=== PATIENT | female | born 1985 | race Caucasian/White ===

== ENCOUNTER 2017-10-10 10:11 | Day surgery (SDC) | payer BC ==
[~2017-10-10 10:11] MED LIST: Lactated Ringers 1,000 ML IV SCH
[2017-10-10] MEDS ORDERED: Propofol 200 MG/20 ML SDV ONE (10:14)
[2017-10-10] MEDS ORDERED: Midazolam 1 MG/ML 2 ML SDV ONE (10:15)
--- NOTE | 2017-10-10 10:57 | PCM.PREANE ---
Preanesthetic Assessment - Anesthesia/Transfusion/Family Hx Anesthesia History: Prior Anesthesia Reaction Transfusion History: No Prior Transfusion(s) - Physical Assessment O2 Sat by Pulse Oximetry: 98 Respiratory Rate: 16 Vital Signs: Last Vital Signs Temp 36.4 C 10/10/17 10:28 Pulse 76 10/10/17 10:28 Resp 16 10/10/17 10:28 BP 124/75 10/10/17 10:28 Pulse Ox 98 10/10/17 10:28 Height: 1.78 m Weight: 100.698 kg - Allergies Allergies/Adverse Reactions: Allergies Allergy/AdvReac Type Severity Reaction Status Date / Time chocolate flavor Allergy Cannot Verified 10/06/17 15:59 Remember gluten Allergy Abdominal Verified 10/06/17 15:59 Pain peanuts Allergy Cannot Uncoded 10/06/17 15:59 Remember PreAnesthesia Questionnaire Other HEENT History: wears glasses/contacts Cardiovascular History: Reports: None Neurological History: Reports: Concussion, Other (See Below) Other Neuro History: hx of motion sickness Endocrine/Metabolic History: Reports: Hypothyroidism, Obesity/BMI 30+ - Past Surgical History HEENT Surgical History: Reports: Tonsillectomy GI Surgical History: Reports: Appendectomy Female Surgical History: Reports: Breast Biopsy Endocrine Surgical History: Reports: Thyroidectomy Musculoskeletal Surgical History: Reports: Shoulder Surgery Other Musculoskeletal Surgeries/Procedures:: right shoulder- repair of labrim tear - SUBSTANCE USE Smoking Status *Q: Never Smoker Recreational Drug Use History: No - HOME MEDS Home Medications: Home Meds Levothyroxine Sodium [Synthroid] 175 mcg PO QAM 10/06/17 [History] Omeprazole 40 mg PO QAM 10/06/17 [History] - CURRENT (IN HOUSE) MEDS Current Meds: Current Medications Lactated Ringer's (Ringers, Lactated) 1,000 mls @ 125 mls/hr IV ASDIRECTED ROSY Last Admin: 10/10/17 10:33 Dose: 125 mls/hr Discontinued Medications Lidocaine HCl (Xylocaine-Mpf 1%) Confirm Administered Dose 5 ml .ROUTE .STK-MED ONE Stop: 10/10/17 10:16 Midazolam HCl (Versed 1 Mg/Ml) Confirm Administered Dose 2 mg .ROUTE .STK-MED ONE Stop: 10/10/17 10:16 Propofol (Diprivan 20 Ml) Confirm Administered Dose 200 mg .ROUTE .STIcinetic-MED ONE Stop: 10/10/17 10:15
--- NOTE | 2017-10-10 10:59 | PCM.PREANE ---
Preanesthetic Assessment - Anesthesia/Transfusion/Family Hx Anesthesia History: Prior Anesthesia Reaction Type of Anesthesia Reaction: Excessive Nausea/Vomiting Family History of Anesthesia Reaction: No Transfusion History: No Prior Transfusion(s) - Review of Systems General: No Symptoms Pulmonary: No Symptoms Cardiovascular: No Symptoms Gastrointestinal: No Symptoms Neurological: No Symptoms Other: Reports: None - Physical Assessment NPO Status Date: 10/09/17 O2 Sat by Pulse Oximetry: 98 Respiratory Rate: 16 Vital Signs: Last Vital Signs Temp 36.4 C 10/10/17 10:28 Pulse 76 10/10/17 10:28 Resp 16 10/10/17 10:57 BP 124/75 10/10/17 10:28 Pulse Ox 98 10/10/17 10:57 Height: 1.78 m Weight: 100.698 kg ASA Class: 2 Mental Status: Alert & Oriented x3 Airway Class: Mallampati = 1 Dentition: Reports: Normal Dentition ROM/Head Extension: Full Lungs: Clear to Auscultation, Normal Respiratory Effort Cardiovascular: Regular Rate, Regular Rhythm - Lab Values: Laboratory Last Values Urine HCG, Qual NEGATIVE (NEGATIVE) 10/10/17 10:23 - Allergies Allergies/Adverse Reactions: Allergies Allergy/AdvReac Type Severity Reaction Status Date / Time chocolate flavor Allergy Cannot Verified 10/06/17 15:59 Remember gluten Allergy Abdominal Verified 10/06/17 15:59 Pain peanuts Allergy Cannot Uncoded 10/06/17 15:59 Remember - Anesthesia Plan Pre-Op Medication Ordered: None - Acknowledgements Anesthesia Type Planned: MAC Pt an Appropriate Candidate for the Planned Anesthesia: Yes Alternatives and Risks of Anesthesia Discussed w Pt/Guardian: Yes Pt/Guardian Understands and Agrees with Anesthesia Plan: Yes PreAnesthesia Questionnaire Other HEENT History: wears glasses/contacts Cardiovascular History: Reports: None Neurological History: Reports: Concussion, Other (See Below) Other Neuro History: hx of motion sickness Endocrine/Metabolic History: Reports: Hypothyroidism, Obesity/BMI 30+ - Past Surgical History HEENT Surgical History: Reports: Tonsillectomy GI Surgical History: Reports: Appendectomy Female Surgical History: Reports: Breast Biopsy Endocrine Surgical History: Reports: Thyroidectomy Musculoskeletal Surgical History: Reports: Shoulder Surgery Other Musculoskeletal Surgeries/Procedures:: right shoulder- repair of labrim tear - SUBSTANCE USE Smoking Status *Q: Never Smoker Recreational Drug Use History: No - HOME MEDS Home Medications: Home Meds Levothyroxine Sodium [Synthroid] 175 mcg PO QAM 10/06/17 [History] Omeprazole 40 mg PO QAM 10/06/17 [History] - CURRENT (IN HOUSE) MEDS Current Meds: Current Medications Lactated Ringer's (Ringers, Lactated) 1,000 mls @ 125 mls/hr IV ASDIRECTED COUNTS INCLUDE 234 BEDS AT THE [facility] Last Admin: 10/10/17 10:33 Dose: 125 mls/hr Discontinued Medications Lidocaine HCl (Xylocaine-Mpf 1%) Confirm Administered Dose 5 ml .ROUTE .STK-MED ONE Stop: 10/10/17 10:16 Midazolam HCl (Versed 1 Mg/Ml) Confirm Administered Dose 2 mg .ROUTE .STK-MED ONE Stop: 10/10/17 10:16 Propofol (Diprivan 20 Ml) Confirm Administered Dose 200 mg .ROUTE .STK-MED ONE Stop: 10/10/17 10:15
--- NOTE | 2017-10-10 11:41 | PCM.OPNOTE ---
- General Post-Op/Procedure Note Date of Surgery/Procedure: 10/10/17 Operative Procedure(s): gastroscopy w bx Findings: see dict [id number] Pre Op Diagnosis: black tarry stool and epigastric pain Post-Op Diagnosis: Same Anesthesia Technique: Moderate Sedation Primary Surgeon: Maurilio Hammonds Pathology: egd bx Complications: None Condition: Good
--- NOTE | 2017-10-10 11:45 | PCM48HPAN ---
Post Anesthesia Note - EVALUATION WITHIN 48HRS OF ANESTHETIC Vital Signs in Normal Range: Yes Patient Participated in Evaluation: Yes Respiratory Function Stable: Yes Airway Patent: Yes Cardiovascular Function Stable: Yes Hydration Status Stable: Yes Pain Control Satisfactory: Yes Nausea and Vomiting Control Satisfactory: Yes Mental Status Recovered: Yes
--- NOTE | 2017-10-10 11:45 | PCM.POSTAN ---
POST ANESTHESIA ASSESSMENT - MENTAL STATUS Mental Status: Alert, Oriented - RESPIRATORY Respiratory Status: Respiratory Rate WNL, Airway Patent, O2 Saturation Stable - CARDIOVASCULAR CV Status: Pulse Rate WNL, Blood Pressure Stable - GASTROINTESTINAL GI Status: No Symptoms - POST OP HYDRATION Hydration Status: Adequate & Stable
--- NOTE | 2017-10-10 12:22 | OR ---
SURGEON: Maurilio Hammonds MD DATE OF PROCEDURE: 10/10/2017 PREOPERATIVE DIAGNOSIS: Black tarry stool. POSTOPERATIVE DIAGNOSIS: Peptic ulcer disease. PROCEDURE PERFORMED: Esophagogastroduodenoscopy with biopsy. FINDINGS: 1. The patient is easily sedated with ART MUSEUM DOCENT and Diprivan. The patient is soundly snoring. 2. Oropharynx and proximal esophagus are free of disease and GE junction at 40 shows moderate salmon color changes with significant GERD. Stomach rugae is normal in appearance and antrum is inflamed. Throughout the stomach has more than 30-40 of petechiae. Appearance is not bleeding, but this petechiae is spotty, possible such as irritated and inflamed stomach. Again, no lali ulcer or blood observed. No bile or food observed. Duodenum was grossly normal in appearance and retroflexed look at the fundus of stomach there was no hiatal hernia. Biopsy done at antrum, body, GE junction at 40, and sucked out the air while scope coming out. PROCEDURE IN DETAIL: The patient was taken to the endoscopy room, and with the ART MUSEUM DOCENT, Diprivan was administered. A well-lubricated EGD scope was gently inserted through the oropharynx, down the esophagus, passing through the gastroesophageal junction, into the stomach. The mucosa was examined upon the passage. Any etiology will be noted. Once in the stomach, we continued to advance to the distal antrum, passed through the pylorus into the second portion of the duodenum. Again, the mucosa was examined for any abnormality and etiology. The scope was then retrieved back to the stomach and then retroflexed to look at the fundus of the stomach. If a biopsy was indicated, we will biopsy the antrum, body, and gastroesophageal junction. The air will be sucked out while the scope is retrieved to reduce the patient's discomfort. The patient tolerated the procedure well. There were no intraoperative complications. Dr. Hammonds was present through the whole procedure. Prior to surgery, a time-out had been called, the patient identified, procedure identified and antibiotic administered. MARGIE / MARIELY /[id number]
== END 2017-10-10 12:21 | disposition home or self-care (01) ==
LOC: MW.SDS 10:11
PROVIDERS: ATTEND Surgery
DX: K29.50 Unspecified chronic gastritis without bleeding (principal); K20.9 Esophagitis, unspecified; R10.11 Right upper quadrant pain; E66.9 Obesity, unspecified; E89.0 Postprocedural hypothyroidism; Z98.890 Other specified postprocedural states; Z91.018 Allergy to other foods; Z91.010 Allergy to peanuts; Z91.09 Other allergy status, other than to drugs and biological substances; Z79.899 Other long term (current) drug therapy; Z90.49 Acquired absence of other specified parts of digestive tract; Z68.31 Body mass index [BMI] 31.0-31.9, adult; Z90.89 Acquired absence of other organs
CPT/HCPCS: 43239; 81025; 88305; 88312; J2250; J7120; 00731; J2704

== ENCOUNTER 2017-10-17 08:19 | Day surgery (SDC) | payer BC ==
[~2017-10-17 08:19] MED LIST changes: +ceFAZolin 2 GM in Premix Bag 1 BAG IV ONE
[2017-10-17] MEDS ORDERED: Bupivacaine 25%/EPINEPHrine/PF 30 ML ONE (09:15)
[2017-10-17] MEDS ORDERED: Octyl 2-Cyanoacrylate 1 Tube ONE ×2 (09:24→12:36)
--- NOTE | 2017-10-17 09:30 | PCM.PREANE ---
Preanesthetic Assessment - Anesthesia/Transfusion/Family Hx Anesthesia History: Prior Anesthesia Reaction Other Type of Anesthesia Reaction Comment: requests Scop patch Family History of Anesthesia Reaction: No Transfusion History: No Prior Transfusion(s) - Review of Systems General: No Symptoms Pulmonary: No Symptoms Cardiovascular: No Symptoms Gastrointestinal: No Symptoms Neurological: No Symptoms Other: Reports: None - Physical Assessment NPO Status Date: 10/16/17 O2 Sat by Pulse Oximetry: 98 Respiratory Rate: 16 Vital Signs: Last Vital Signs Temp 36.2 C 10/17/17 08:45 Pulse 81 10/17/17 08:45 Resp 16 10/17/17 08:45 BP 107/76 10/17/17 08:45 Pulse Ox 98 10/17/17 08:45 Height: 1.78 m Weight: 100.698 kg ASA Class: 1 Mental Status: Alert & Oriented x3 Dentition: Reports: Normal Dentition Lungs: Clear to Auscultation, Normal Respiratory Effort Cardiovascular: Regular Rate, Regular Rhythm - Lab Values: Laboratory Last Values Urine HCG, Qual NEGATIVE (NEGATIVE) 10/17/17 08:40 - Allergies Allergies/Adverse Reactions: Allergies Allergy/AdvReac Type Severity Reaction Status Date / Time chocolate flavor Allergy Cannot Verified 10/06/17 15:59 Remember gluten Allergy Abdominal Verified 10/06/17 15:59 Pain peanuts Allergy Cannot Uncoded 10/06/17 15:59 Remember - Anesthesia Plan Pre-Op Medication Ordered: Other (scop) - Acknowledgements Anesthesia Type Planned: General Anesthesia Pt an Appropriate Candidate for the Planned Anesthesia: Yes Alternatives and Risks of Anesthesia Discussed w Pt/Guardian: Yes Pt/Guardian Understands and Agrees with Anesthesia Plan: Yes PreAnesthesia Questionnaire Other HEENT History: wears glasses/contacts Cardiovascular History: Reports: None Gastrointestinal History: Reports: Cholelithiasis Neurological History: Reports: Concussion, Other (See Below) Other Neuro History: hx of motion sickness Endocrine/Metabolic History: Reports: Hypothyroidism, Obesity/BMI 30+ - Past Surgical History HEENT Surgical History: Reports: Tonsillectomy GI Surgical History: Reports: Appendectomy, EGD Female Surgical History: Reports: Breast Biopsy Endocrine Surgical History: Reports: Thyroidectomy Musculoskeletal Surgical History: Reports: Shoulder Surgery Other Musculoskeletal Surgeries/Procedures:: right shoulder- repair of labrim tear - SUBSTANCE USE Smoking Status *Q: Never Smoker Recreational Drug Use History: No - HOME MEDS Home Medications: Home Meds Levothyroxine Sodium [Synthroid] 175 mcg PO QAM 10/06/17 [History] Omeprazole 40 mg PO QAM 10/06/17 [History] - CURRENT (IN HOUSE) MEDS Current Meds: Current Medications Lactated Ringer's (Ringers, Lactated) 1,000 mls @ 125 mls/hr IV ASDIRECTED ROSY Last Admin: 10/17/17 08:51 Dose: 125 mls/hr Discontinued Medications Cefazolin Sodium/Dextrose 2 gm (/ Premix) 50 mls @ 100 mls/hr IV ONETIME ONE Stop: 10/17/17 05:29 Bupivacaine HCl/Epinephrine Bitart (Sensorc Mpf 0.25%-Epi [id number]) Confirm Administered Dose 30 mls @ as directed .ROUTE .STK-MED ONE Stop: 10/17/17 09:16 Octyl Cyanoacrylate (Dermabond Advance) Confirm Administered Dose 1 applic .ROUTE .STK-MED ONE Stop: 10/17/17 09:25
[2017-10-17] MEDS ORDERED: Scopolamine 1.5 MG Transdermal Patch TRDERM PRN (09:33)
[2017-10-17] MEDS ORDERED: Lidocaine 2% 5 ML SDV ONE (10:45)
[2017-10-17] MEDS ORDERED: fentaNYL 100 MCG/2 ML SDV ONE (10:45)
[2017-10-17] MEDS ORDERED: Propofol 200 MG/20 ML SDV ONE (10:45)
[2017-10-17] MEDS ORDERED: Neostigmine Methylsulfate 1 MG/ML 5 ML Syringe ONE (10:46)
[2017-10-17] MEDS ORDERED: Ketorolac 30 MG/ML SDV ONE (10:46)
[2017-10-17] MEDS ORDERED: Glycopyrrolate 0.2 MG/ML SDV ONE (10:46)
[2017-10-17] MEDS ORDERED: Ondansetron 4 MG/2 ML SDV ONE (10:46)
[2017-10-17] MEDS ORDERED: Rocuronium 10 MG/ML 10 ML Syringe ONE (10:46)
[2017-10-17] MEDS ORDERED: Midazolam 1 MG/ML 2 ML SDV ONE (10:46)
[2017-10-17] MEDS ORDERED: Naloxone 0.4 MG/ML Syringe ONE (11:45)
[2017-10-17] MEDS ORDERED: HYDROmorphone 2 MG/ML Syringe IVPUSH ONE (13:03)
[2017-10-17] MEDS ORDERED: fentaNYL 100 MCG/2 ML SDV IVPUSH PRN (13:03)
--- NOTE | 2017-10-17 13:45 | PCM.OPNOTE ---
- General Post-Op/Procedure Note Date of Surgery/Procedure: 10/17/17 Operative Procedure(s): lap lucrecia Findings: gb was yellow and green, cw chronic cholecystitis; wall was not thickened; [id number] Pre Op Diagnosis: biliary dyskinesia Post-Op Diagnosis: chronic cholecystitis Anesthesia Technique: General ET Tube Primary Surgeon: Maurilio Hammonds Pathology: sent Complications: None Condition: Good
[2017-10-17] MEDS ORDERED: Acetaminophen/oxyCODONE 325-10 MG Tab PO ONE (13:46)
--- NOTE | 2017-10-17 19:34 | OR ---
SURGEON: Maurilio Hammonds MD DATE OF PROCEDURE: 10/17/2017 PREOPERATIVE DIAGNOSIS: Biliary dyskinesia. POSTOPERATIVE DIAGNOSIS: Chronic cholecystitis. PROCEDURE PERFORMED: Laparoscopic cholecystectomy. COMPLICATIONS: None. FINDIN. The gallbladder was yellow and green consistent with cholecystitis. 2. Wall is not thickened. PROCEDURE NOTE: The patient was taken to the operating room and placed in the supine position. After the intubation of general endotracheal anesthesia, the patient's abdomen was prepped and draped in the usual sterile fashion. Using Optiview, a 12 mm trocar was placed supraumbilically and then followed with pneumoperitoneum. A 5 mm trocar was placed in the epigastrium and two 5 mm trocars placed in the right upper quadrant. The placement of the last three trocars was done under direct video supervision. Upon gaining entrance to the abdominal cavity, an extensive examination was then performed. The gallbladder was located and identified and retracted to the dome of the liver at the triangle of Calot. The cystic duct was clipped three more times and then using the endoscopic clip, was transected with placement of the endoscopic clip and transection was performed with care, ensuring the posterior prong of the instruments were clearly visualized prior to exercising the procedure. The gallbladder was dissected using electrocautery out of the liver bed and then removed using endoscopic bag through the umbilical site. The gallbladder was removed en bloc and there was no bile spillage and this was then followed with extensive irrigation until the bile was clear from blood and bile. The trocars were then removed under direct video supervision. The 12 mm umbilical site was then closed with deep stitches using 0 Vicryl followed with proximal stitches using 3-0 Vicryl and Dermabond. The other three trocar sites were closed with 3-0 Vicryl followed with approximation of skin with Dermabond. The patient was then awakened and extubated and transferred to the recovery room in hemodynamically stable condition. At the conclusion of the surgery, before closing the abdominal wound, instrument count and sponge count were done and were correct. The patient tolerated the procedure well and there were no intraoperative complications. Dr. Hammonds was present through the whole procedure. Just before surgery, a timeout was called. The patient was identified and procedure identified and procedure started. MARGIE / MARIELY /[id number]
== END 2017-10-17 15:02 | disposition home or self-care (01) ==
LOC: MW.SDS 08:19
PROVIDERS: ATTEND Surgery
DX: K81.1 Chronic cholecystitis (principal); E03.9 Hypothyroidism, unspecified; E66.9 Obesity, unspecified; Z68.31 Body mass index [BMI] 31.0-31.9, adult; Z91.010 Allergy to peanuts; Z91.018 Allergy to other foods; Z91.02 Food additives allergy status; Z79.899 Other long term (current) drug therapy; Z90.49 Acquired absence of other specified parts of digestive tract; Z98.890 Other specified postprocedural states
CPT/HCPCS: 47562; 81025; A9270; J1885; J2250; J2405; J3010; J7120; 00790; 88304; J2704

== ENCOUNTER 2018-10-26 00:03 | Inpatient (IN) | payer SELFPAY ==
[2018-10-26] MEDS ORDERED: Tranexamic Acid 1,000 MG in Sodium Chloride 0.9% 100 ML IV PRN (00:56)
[2018-10-26] MEDS ORDERED: Nalbuphine 10 MG/1 ML Vial IVPUSH PRN (00:56)
[2018-10-26] MEDS ORDERED: Water For Irrigation,Sterile 1,000 ML Container IRR PRN (00:56)
[2018-10-26] MEDS ORDERED: Carboprost Tromethamine 250 MCG/1 ML Amp IM PRN (00:56)
[2018-10-26] MEDS ORDERED: Misoprostol 200 MCG Tab PO PRN (00:56)
[2018-10-26] MEDS ORDERED: Ondansetron 4 MG/2 ML SDV IV PRN (00:56)
[2018-10-26] MEDS ORDERED: Sodium Chloride 0.9% 10 ML Syringe FLUSH PRN (00:56)
[2018-10-26] MEDS ORDERED: Methylergonovine 0.2 MG/1 ML Amp IM PRN (00:56)
[2018-10-26] MEDS ORDERED: Sodium Chloride 0.9% 2.5 ML Syringe FLUSH PRN (00:56)
[2018-10-26] MEDS ORDERED: Lidocaine 1% 50 ML MDV INJECT PRN (00:56)
[2018-10-26] MEDS ORDERED: Misoprostol 25 MCG (1/4 of 100 MCG) Tab VAG PRN ×3 (00:58→08:00)
[2018-10-26] MEDS ORDERED: Terbutaline 1 MG/ML SDV SUBCUT PRN (00:58)
[2018-10-26] MEDS ORDERED: Oxytocin/0.9 % Sodium Chloride 30 UNIT/500 ML BAG IV SCH ×2 (01:00)
[2018-10-26] MEDS: Lactated Ringers 1,000 ML IV SCH ×4 (01:26→10:25)
[2018-10-26] MEDS: Butorphanol 1 MG/ML SDV IVPUSH PRN ×2 (06:59→08:10)
--- NOTE | 2018-10-26 08:29 | PCM.PREANE ---
Preanesthetic Assessment - Anesthesia/Transfusion/Family Hx Anesthesia History: Prior Anesthesia Without Reaction Other Type of Anesthesia Reaction Comment: requests Scop patch Transfusion History: No Prior Transfusion(s) - Review of Systems General: No Symptoms Pulmonary: No Symptoms Cardiovascular: No Symptoms Gastrointestinal: No Symptoms Neurological: No Symptoms Other: Reports: None - Physical Assessment Height: 5 ft 9.5 in Weight: 107.501 kg ASA Class: 2 Mental Status: Alert & Oriented x3 Airway Class: Mallampati = 2 Dentition: Reports: Normal Dentition Thyro-Mental Finger Breadths: 3 Mouth Opening Finger Breadths: 3 ROM/Head Extension: Full Lungs: Clear to Auscultation, Normal Respiratory Effort Cardiovascular: Regular Rate, Regular Rhythm - Lab Values: Laboratory Last Values WBC 9.04 K/uL (4.0-11.0) 10/26/18 01:20 RBC 4.00 M/uL (4.30-5.90) L 10/26/18 01:20 Hgb 13.1 g/dL (12.0-16.0) 10/26/18 01:20 Hct 37.3 % (36.0-46.0) 10/26/18 01:20 MCV 93.3 fL (80.0-98.0) 10/26/18 01:20 MCH 32.8 pg (27.0-32.0) H 10/26/18 01:20 MCHC 35.1 g/dL (31.0-37.0) 10/26/18 01:20 RDW Std Deviation 42.4 fl (28.0-62.0) 10/26/18 01:20 RDW Coeff of Sunita 12 % (11.0-15.0) 10/26/18 01:20 Plt Count 216 K/uL (150-400) 10/26/18 01:20 MPV 10.00 fL (7.40-12.00) 10/26/18 01:20 Nucleated RBC % 0.0 /100WBC 10/26/18 01:20 Nucleated RBCs # 0 K/uL 10/26/18 01:20 Membrane Rupture POSITIVE 10/26/18 00:28 Blood Type O POSITIVE 10/26/18 01:20 Antibody Screen NEGATIVE 10/26/18 01:20 - Allergies Allergies/Adverse Reactions: Allergies Allergy/AdvReac Type Severity Reaction Status Date / Time chocolate flavor Allergy Swollen Verified 09/20/18 10:17 Tongue gluten Allergy Abdominal Verified 07/20/18 14:13 Pain peanuts Allergy Swollen Uncoded 09/20/18 10:17 Tongue walnuts Allergy Swollen Uncoded 09/20/18 10:17 Tongue - Acknowledgements Anesthesia Type Planned: Epidural Pt an Appropriate Candidate for the Planned Anesthesia: Yes Alternatives and Risks of Anesthesia Discussed w Pt/Guardian: Yes Pt/Guardian Understands and Agrees with Anesthesia Plan: Yes PreAnesthesia Questionnaire Other HEENT History: wears glasses/contacts Cardiovascular History: Reports: None Respiratory History: Reports: None Gastrointestinal History: Reports: Cholelithiasis Genitourinary History: Reports: None WEB APPLICATIONS ARCHITECT History: Reports: , Other (See Below) : 1 Para: 0 LMP (Approximate): Other OB/BYN History: 2000 LEEP for abnormal PAP Musculoskeletal History: Reports: None Neurological History: Reports: Concussion, Other (See Below) Other Neuro History: hx of motion sickness Psychiatric History: Reports: None Endocrine/Metabolic History: Reports: Hypothyroidism, Obesity/BMI 30+ Hematologic History: Reports: None Immunologic History: Reports: None Oncologic (Cancer) History: Reports: None Dermatologic History: Reports: None - Infectious Disease History Infectious Disease History: Reports: None - Past Surgical History HEENT Surgical History: Reports: Adenoidectomy, Tonsillectomy GI Surgical History: Reports: Appendectomy, Cholecystectomy, EGD Female Surgical History: Reports: Breast Biopsy Endocrine Surgical History: Reports: Thyroidectomy Neurological Surgical History: Reports: None Musculoskeletal Surgical History: Reports: Shoulder Surgery Other Musculoskeletal Surgeries/Procedures:: right shoulder- repair of labrim tear Oncologic Surgical History: Reports: Lumpectomy, Other (See Below) Other Oncologic Surgeries/Procedures: Lumpectomy from right breast in 2016. - SUBSTANCE USE Smoking Status *Q: Never Smoker Second Hand Smoke Exposure: No Recreational Drug Use History: No - HOME MEDS Home Medications: Home Meds Levothyroxine Sodium [Synthroid] 225 mcg PO QAM 10/06/17 [History] PNV95/Ferrous Fumarate/FA [ Vitamin Tablet] 1 tab PO DAILY 07/20/18 [ History] Calcium Carbonate [Calcium] 500 mg PO BID 09/20/18 [History] Docusate Sodium [Colace] 50 mg PO BID 09/20/18 [History] - CURRENT (IN HOUSE) MEDS Current Meds: Current Medications Butorphanol Tartrate (Stadol) 1 mg IVPUSH Q1H PRN PRN Reason: Pain Last Admin: 10/26/18 08:10 Dose: 1 mg Carboprost Tromethamine (Hemabate Ds) 250 mcg IM ASDIRECTED PRN PRN Reason: Post Hemorrhage Lactated Ringer's (Ringers, Lactated) 1,000 mls @ 150 mls/hr IV ASDIRECTED ROSY Last Admin: 10/26/18 08:16 Dose: 150 mls/hr Oxytocin/Sodium Chloride (Oxytocin 30 Unit/500 Ml-Ns) 30 unit in 500 mls @ 999 mls/hr IV TITRATE ROSY Oxytocin/Sodium Chloride (Oxytocin 30 Unit/500 Ml-Ns) 30 unit in 500 mls @ 2 mls/hr IV TITRATE ROSY; Protocol Tranexamic Acid 1,000 mg/ (Sodium Chloride) 110 mls @ 660 mls/hr IV ONETIME PRN PRN Reason: Bleeding Lidocaine HCl (Xylocaine 1%) 50 ml INJECT ONETIME PRN PRN Reason: Laceration repair Methylergonovine Maleate (Methergine) 0.2 mg IM ASDIRECTED PRN PRN Reason: Post Hemorrhage Misoprostol (Cytotec) 200 mcg PO ONETIME PRN PRN Reason: Post Hemorrhage Misoprostol (Cytotec) 25 mcg VAG ONETIME PRN PRN Reason: Cervical Ripening Last Admin: 10/26/18 02:27 Dose: 25 mcg Misoprostol (Cytotec) 25 mcg VAG Q6H PRN PRN Reason: Cervical Ripening Nalbuphine HCl (Nubain) 10 mg IVPUSH Q1H PRN PRN Reason: Pain (severe 7-10) Ondansetron HCl (Zofran) 4 mg IV Q6H PRN PRN Reason: Nausea/Vomiting Sodium Chloride (Saline Flush) 10 ml FLUSH ASDIRECTED PRN PRN Reason: Keep Vein Open Sodium Chloride (Saline Flush) 2.5 ml FLUSH ASDIRECTED PRN PRN Reason: Keep Vein Open Sterile Water (Sterile Water For Irrigation) 1,000 ml IRR ASDIRECTED PRN PRN Reason: delivery Terbutaline Sulfate (Brethine) 0.25 mg SUBCUT ASDIRECTED PRN PRN Reason: Tacysystole
[2018-10-26] MEDS ORDERED: Lidocaine HCl/EPINEPHrine 5 ML IJ ONE (08:32)
[2018-10-26] MEDS ORDERED: Lanolin 100% Cream 7 GM Tube TOP PRN (15:07)
[2018-10-26] MEDS ORDERED: Ibuprofen 800 MG Tab PO PRN (15:07)
[2018-10-26] MEDS ORDERED: Bisacodyl 10 MG Supp RECTAL PRN (15:07)
[2018-10-26] MEDS ORDERED: Docusate Sodium 100 MG Cap PO PRN (15:07)
[2018-10-26] MEDS ORDERED: oxyCODONE 5 MG Tab PO PRN (15:07)
[2018-10-26] MEDS ORDERED: Witch Hazel Medicated Pads 40/Jar TOP PRN (15:07)
[2018-10-26] MEDS ORDERED: Acetaminophen 500 MG Tab PO PRN ×2 (15:07)
[2018-10-26] MEDS ORDERED: Ibuprofen 400 MG Tab PO PRN (15:07)
[2018-10-26] MEDS ORDERED: Benzocaine/Menthol 20%-0.5% Spray 78 GM Cannister TOP PRN (15:07)
--- NOTE | 2018-10-26 15:17 | PCM.DEL ---
L & D Note - General Info Date of Service: 10/26/18 Mother's Due Date: 11/12/18 - Delivery Note Labor: Spontaneous Cervical Ripening Method: Misoprostil Delivery Outcome: Livebirth Presentation: Right Occiput Anterior (RENNY) Nuchal Cord: None Anesthesia Type: Epidural Anesthetic: Lidocaine (Xylocaine) 1% Plain Local Anesthetic Volume: 3cc Amniotic Fluid Description: Clear Episiotomy Type: None Laceration: 1st Degree, Labial Suture type: Vicryl Suture size: 3-0 Placenta: Intact Cord: 3 Vessels Estimated Blood Loss: 300 Resuscitation Needed: No Score 1 min: 9 Score 5 min: 9 Delivery Comments (Free Text/Narrative):: Live male delivered at 1425, #6 30z , 9/9 - General Info Date of Service: 10/26/18 - Patient Data Weight - Most Recent: 107.501 kg Lab Results Last 24 Hours: Laboratory Results - last 24 hr 10/26/18 10/26/18 10/26/18 Range/Units 00:28 01:20 01:20 WBC 9.04 (4.0-11.0) K/uL RBC 4.00 L (4.30-5.90) M/uL Hgb 13.1 (12.0-16.0) g/dL Hct 37.3 (36.0-46.0) % MCV 93.3 (80.0-98.0) fL MCH 32.8 H (27.0-32.0) pg MCHC 35.1 (31.0-37.0) g/dL RDW Std Deviation 42.4 (28.0-62.0) fl RDW Coeff of Sunita 12 (11.0-15.0) % Plt Count 216 (150-400) K/uL MPV 10.00 (7.40-12.00) fL Nucleated RBC % 0.0 /100WBC Nucleated RBCs # 0 K/uL Membrane Rupture POSITIVE Blood Type O POSITIVE Antibody Screen NEGATIVE Med Orders - Current: Current Medications Acetaminophen (Tylenol Extra Strength) 500 mg PO Q4H PRN PRN Reason: Pain Acetaminophen (Tylenol Extra Strength) 1,000 mg PO Q4H PRN PRN Reason: Pain Benzocaine/Menthol (Dermoplast Pain Relief 20%-0.5% Cisco) 78 gm TOP ASDIRECTED PRN PRN Reason: Perineal Comfort Measure Bisacodyl (Dulcolax) 10 mg RECTAL ONETIME PRN PRN Reason: Constipation Carboprost Tromethamine (Hemabate Ds) 250 mcg IM ASDIRECTED PRN PRN Reason: Post Hemorrhage Docusate Sodium (Colace) 100 mg PO BID PRN PRN Reason: Constipation Emollient Ointment (Lansinoh Hpa) 0 gm TOP ASDIRECTED PRN PRN Reason: Sore Nipples Lactated Ringer's (Ringers, Lactated) 1,000 mls @ 150 mls/hr IV ASDIRECTED ROSY Last Admin: 10/26/18 10:25 Dose: 150 mls/hr Oxytocin/Sodium Chloride (Oxytocin 30 Unit/500 Ml-Ns) 30 unit in 500 mls @ 999 mls/hr IV TITRATE [facility] Last Admin: 10/26/18 14:30 Dose: 999 mls/hr Oxytocin/Sodium Chloride (Oxytocin 30 Unit/500 Ml-Ns) 30 unit in 500 mls @ 2 mls/hr IV TITRATE [facility]; Protocol Tranexamic Acid 1,000 mg/ (Sodium Chloride) 110 mls @ 660 mls/hr IV ONETIME PRN PRN Reason: Bleeding Ibuprofen (Motrin) 400 mg PO Q4H PRN PRN Reason: Pain Ibuprofen (Motrin) 800 mg PO Q6H PRN PRN Reason: Pain Lidocaine HCl (Xylocaine 1%) 50 ml INJECT ONETIME PRN PRN Reason: Laceration repair Last Admin: 10/26/18 14:48 Dose: 50 ml Methylergonovine Maleate (Methergine) 0.2 mg IM ASDIRECTED PRN PRN Reason: Post Hemorrhage Misoprostol (Cytotec) 200 mcg PO ONETIME PRN PRN Reason: Post Hemorrhage Misoprostol (Cytotec) 25 mcg VAG ONETIME PRN PRN Reason: Cervical Ripening Last Admin: 10/26/18 02:27 Dose: 25 mcg Misoprostol (Cytotec) 25 mcg VAG Q6H PRN PRN Reason: Cervical Ripening Ondansetron HCl (Zofran) 4 mg IV Q6H PRN PRN Reason: Nausea/Vomiting Oxycodone HCl (Oxycodone) 5 mg PO Q2H PRN PRN Reason: Pain Sodium Chloride (Saline Flush) 10 ml FLUSH ASDIRECTED PRN PRN Reason: Keep Vein Open Sodium Chloride (Saline Flush) 2.5 ml FLUSH ASDIRECTED PRN PRN Reason: Keep Vein Open Sterile Water (Sterile Water For Irrigation) 1,000 ml IRR ASDIRECTED PRN PRN Reason: delivery Terbutaline Sulfate (Brethine) 0.25 mg SUBCUT ASDIRECTED PRN PRN Reason: Tacysystole Witch Kaela (Tucks) 1 pad TOP ASDIRECTED PRN PRN Reason: comfort care Discontinued Medications Butorphanol Tartrate (Stadol) 1 mg IVPUSH Q1H PRN PRN Reason: Pain Last Admin: 10/26/18 08:10 Dose: 1 mg Fentanyl/Bupivacaine HCl (Twgwmwou-Xpiol-Vj 2 Mcg/Ml-0.125%) Confirm Administered Dose 100 mls @ as directed .ROUTE .STK-MED ONE Stop: 10/26/18 08:32 Lidocaine/Epinephrine (Lidocaine 1.5%-Epi 1:200,000) Confirm Administered Dose 5 ml IJ .STK-MED ONE Stop: 10/26/18 08:33 Nalbuphine HCl (Nubain) 10 mg IVPUSH Q1H PRN PRN Reason: Pain (severe 7-10) - Problem List & Annotations (1) Vaginal delivery SNOMED Code(s): 263537986 Code(s): O80 - ENCOUNTER FOR FULL-TERM UNCOMPLICATED DELIVERY Status: Acute - Problem List Review Problem List Initiated/Reviewed/Updated: Yes - My Orders Last 24 Hours: My Active Orders 10/26/18 15:07 Patient Status [ADT] Routine May Shower [RC] ASDIRECTED Up ad Jovita [RC] ASDIRECTED Vital Signs [RC] PER UNIT ROUTINE Acetaminophen [Tylenol Extra Strength] 1,000 mg PO Q4H PRN Acetaminophen [Tylenol Extra Strength] 500 mg PO Q4H PRN Benzocaine/Menthol [Dermoplast Pain Relief 20%-0.5% Cisco] 78 gm TOP ASDIRECTED PRN Bisacodyl [Dulcolax] 10 mg RECTAL ONETIME PRN Docusate Sodium [Colace] 100 mg PO BID PRN Ibuprofen [Motrin] 400 mg PO Q4H PRN Ibuprofen [Motrin] 800 mg PO Q6H PRN Lanolin [Lansinoh HPA] See Dose Instructions TOP ASDIRECTED PRN Edna [place] [Tucks] 1 pad TOP ASDIRECTED PRN oxyCODONE 5 mg PO Q2H PRN Assess Lochia [WOMSER] Per Unit Routine Assess Uterine Involution [WOMSER] Per Unit Routine Peripheral IV Discontinue [OM.PC] Routine Resuscitation Status Routine 10/27/18 05:11 HEMOGLOBIN/HEMATOCRIT,HH [HEME] Timed
--- NOTE | 2018-10-27 07:31 | PCM.PNPP ---
- General Info Date of Service: 10/27/18 Functional Status: Reports: Pain Controlled, Tolerating Diet, Ambulating, Urinating - Review of Systems General: Denies: Fever, Weakness, Malaise, Chills HEENT: Denies: Headaches, Visual Changes Pulmonary: Denies: Shortness of Breath, Pleuritic Chest Pain Cardiovascular: Denies: Chest Pain, Palpitations, Dyspnea on Exertion Gastrointestinal: Denies: Abdominal Pain Genitourinary: Denies: Dysuria, Incontinence, Retention, Flank Pain Psychiatric: Denies: Confusion, Depression, Mood Lability, Anxiety - General Info Date of Service: 10/27/18 - Patient Data Vital Signs - Most Recent: Last Vital Signs Temp 36.6 C 10/27/18 03:30 Pulse 69 10/27/18 03:30 Resp 17 10/27/18 03:30 BP 117/63 10/27/18 03:30 Pulse Ox 96 10/27/18 03:30 Weight - Most Recent: 237 lb Lab Results - Last 24 Hours: Laboratory Results - last 24 hr 10/27/18 Range/Units 05:53 Hgb 11.7 L (12.0-16.0) g/dL Hct 34.1 L (36.0-46.0) % Med Orders - Current: Current Medications Acetaminophen (Tylenol Extra Strength) 500 mg PO Q4H PRN PRN Reason: Pain Acetaminophen (Tylenol Extra Strength) 1,000 mg PO Q4H PRN PRN Reason: Pain Last Admin: 10/27/18 03:34 Dose: 1,000 mg Benzocaine/Menthol (Dermoplast Pain Relief 20%-0.5% [place]) 78 gm TOP ASDIRECTED PRN PRN Reason: Perineal Comfort Measure Bisacodyl (Dulcolax) 10 mg RECTAL ONETIME PRN PRN Reason: Constipation Carboprost Tromethamine (Hemabate Ds) 250 mcg IM ASDIRECTED PRN PRN Reason: Post Hemorrhage Docusate Sodium (Colace) 100 mg PO BID PRN PRN Reason: Constipation Emollient Ointment (Lansinoh Hpa) 0 gm TOP ASDIRECTED PRN PRN Reason: Sore Nipples Lactated Ringer's (Ringers, Lactated) 1,000 mls @ 150 mls/hr IV ASDIRECTED ROSY Last Admin: 10/26/18 10:25 Dose: 150 mls/hr Oxytocin/Sodium Chloride (Oxytocin 30 Unit/500 Ml-Ns) 30 unit in 500 mls @ 999 mls/hr IV TITRATE [facility] Last Admin: 10/26/18 14:30 Dose: 999 mls/hr Oxytocin/Sodium Chloride (Oxytocin 30 Unit/500 Ml-Ns) 30 unit in 500 mls @ 2 mls/hr IV TITRATE [facility]; Protocol Tranexamic Acid 1,000 mg/ (Sodium Chloride) 110 mls @ 660 mls/hr IV ONETIME PRN PRN Reason: Bleeding Ibuprofen (Motrin) 400 mg PO Q4H PRN PRN Reason: Pain Ibuprofen (Motrin) 800 mg PO Q6H PRN PRN Reason: Pain Last Admin: 10/26/18 23:08 Dose: 800 mg Lidocaine HCl (Xylocaine 1%) 50 ml INJECT ONETIME PRN PRN Reason: Laceration repair Last Admin: 10/26/18 14:48 Dose: 50 ml Methylergonovine Maleate (Methergine) 0.2 mg IM ASDIRECTED PRN PRN Reason: Post Hemorrhage Misoprostol (Cytotec) 200 mcg PO ONETIME PRN PRN Reason: Post Hemorrhage Misoprostol (Cytotec) 25 mcg VAG ONETIME PRN PRN Reason: Cervical Ripening Last Admin: 10/26/18 02:27 Dose: 25 mcg Misoprostol (Cytotec) 25 mcg VAG Q6H PRN PRN Reason: Cervical Ripening Ondansetron HCl (Zofran) 4 mg IV Q6H PRN PRN Reason: Nausea/Vomiting Oxycodone HCl (Oxycodone) 5 mg PO Q2H PRN PRN Reason: Pain Sodium Chloride (Saline Flush) 10 ml FLUSH ASDIRECTED PRN PRN Reason: Keep Vein Open Sodium Chloride (Saline Flush) 2.5 ml FLUSH ASDIRECTED PRN PRN Reason: Keep Vein Open Sterile Water (Sterile Water For Irrigation) 1,000 ml IRR ASDIRECTED PRN PRN Reason: delivery Terbutaline Sulfate (Brethine) 0.25 mg SUBCUT ASDIRECTED PRN PRN Reason: Tacysystole Witch Kaela (Tucks) 1 pad TOP ASDIRECTED PRN PRN Reason: comfort care Discontinued Medications Butorphanol Tartrate (Stadol) 1 mg IVPUSH Q1H PRN PRN Reason: Pain Last Admin: 10/26/18 08:10 Dose: 1 mg Fentanyl/Bupivacaine HCl (Zfifplbd-Bgryk-Dl 2 Mcg/Ml-0.125%) Confirm Administered Dose 100 mls @ as directed .ROUTE .STK-MED ONE Stop: 10/26/18 08:32 Lidocaine/Epinephrine (Lidocaine 1.5%-Epi 1:200,000) Confirm Administered Dose 5 ml IJ .STK-MED ONE Stop: 10/26/18 08:33 Nalbuphine HCl (Nubain) 10 mg IVPUSH Q1H PRN PRN Reason: Pain (severe 7-10) - Infant Interaction Infant Disposition, : [place] in Room with Family Infant Feeding: Breastfed Infant; Nursed Well, Continues to Breastfeed Support Person: - Recovery Exam Fundal Tone: Firm Fundal Level: At Umbilicus Lochia Amount: Scant Lochia Color: Rubra/Red Perineum Description: Other (see below) Other Perinuem Description: 1st degree laceration, labial Episiotomy/Laceration: Approximated Bladder Status: Voiding - Exam General: Alert, Oriented Neck: Supple Lungs: Clear to Auscultation, Normal Respiratory Effort Cardiovascular: Regular Rate, Regular Rhythm GI/Abdominal Exam: Normal Bowel Sounds, Soft, Non-Tender Extremities: Non-Tender, Pedal Edema Psy/Mental Status: Alert, Normal Affect, Normal Mood - Problem List & Annotations (1) Vaginal delivery SNOMED Code(s): 457832031 Code(s): O80 - ENCOUNTER FOR FULL-TERM UNCOMPLICATED DELIVERY Status: Acute Current Visit: Yes (2) Hypothyroidism affecting SNOMED Code(s): 115498324 Code(s): O99.280 - ENDO, NUTRITIONAL AND METAB DISEASES COMP PREG, UNSP TRI; E03.9 - HYPOTHYROIDISM, UNSPECIFIED Status: Acute Current Visit: Yes - Problem List Review Problem List Initiated/Reviewed/Updated: Yes - Assessment Assessment:: PPD#1 s/p , stable and afebrile Clinically stable for discharge today - Plan Plan:: Discharge instructions reviewed Nothing in the vagina for 6 weeks. Bleeding and infection precautions given Continue PNV and Thyroxine. May reduce dose to 200mcg daily S/S of depression reviewed and encouraged to call with concerns Follow up in 6 weeks at [facility]
--- NOTE | 2018-10-27 08:04 | PCM48HPAN ---
Post Anesthesia Note - EVALUATION WITHIN 48HRS OF ANESTHETIC Vital Signs in Normal Range: Yes Patient Participated in Evaluation: Yes Respiratory Function Stable: Yes Airway Patent: Yes Cardiovascular Function Stable: Yes Hydration Status Stable: Yes Pain Control Satisfactory: Yes Nausea and Vomiting Control Satisfactory: Yes Mental Status Recovered: Yes Resp Rate: 17 - COMMENTS/OBSERVATIONS Free Text/Narrative:: Patient doing well. No concerns.
--- NOTE | 2018-10-29 11:43 | OR ---
SURGEON: SUNSHINE ALEMAN DATE OF PROCEDURE: 10/26/2018 PREOPERATIVE DIAGNOSIS: A 33-year-old G1, P0, at 37 weeks 4 days, admitted with premature rupture of membranes, group B Streptococcus negative. POSTOPERATIVE DIAGNOSIS: A 33-year-old G1, P0, at 37 weeks 4 days, admitted with premature rupture of membranes, group B Streptococcus negative. PROCEDURE: Normal spontaneous vaginal delivery. Repair of first degree vaginal laceration and right labial laceration. ESTIMATED BLOOD LOSS: 200. IV FLUID: Pitocin running. NOTES AND FINDINGS: A live male delivered at 1425 hours, scores 9 and 9, weight is 2800 g. Date is 10/26/2018. BRIEF HISTORY: She is a 33-year-old G1, P0. She was 37 weeks and 4 days. She came in complaining of rupture and she was found to be closed. As a result, she was started on Cytotec. She received two doses of Cytotec. She then had a normal labor call, and she made change to become fully dilated. She was requesting epidural during her labor course. She received epidural. While I was notified, the patient was fully dilated. The patient began to push, good pushing effort and head crowned. DESCRIPTION OF PROCEDURE: With , the patient delivered the head, subsequently the anterior and posterior shoulder, and the body of the infant was delivered. The infant was placed on the maternal abdomen. The cord was clamped and cut, the placenta was then delivered via controlled cord traction. The perineum was inspected. A first-degree laceration was noted that was repaired with Vicryl 3-0. The right labial laceration was also repaired. The uterus was massaged, the bleeding was normal, and all instrument and pad counts were correct x2. The infant was left with the parents in stable condition. PRAKASH / MARIELY /[id number]
== END 2018-10-27 18:35 | disposition home or self-care (01) | DRG 807 ==
LOC: MW.OBCHECK 00:03 → MW.OB 00:10 → MW.OBCHECK 00:39 → MW.OB 01:53 → OBSVTOIN 14:25 → MW.OB 20:30
PROVIDERS: ADMIT Obstetrics & Gynecology; ATTEND Obstetrics & Gynecology
PROC: 3E0P7VZ Introduction of Hormone into Female Reproductive, Via Natural or Artificial Opening (ICD-10-PCS; principal; 2018-10-26)
PROC: 10E0XZZ Delivery of Products of Conception, External Approach (ICD-10-PCS; principal; 2018-10-26)
PROC: 0UQMXZZ Repair Vulva, External Approach (ICD-10-PCS; principal; 2018-10-26)
PROC: 0HQ9XZZ Repair Perineum Skin, External Approach (ICD-10-PCS; principal; 2018-10-26)
PROC: 3E0R3BZ Introduction of Anesthetic Agent into Spinal Canal, Percutaneous Approach (ICD-10-PCS; 2018-10-26)
PROC: 00HU33Z Insertion of Infusion Device into Spinal Canal, Percutaneous Approach (ICD-10-PCS; 2018-10-26)
DX: O99.284 Endocrine, nutritional and metabolic diseases complicating childbirth (principal); Z37.0 Single live birth; Z3A.37 37 weeks gestation of pregnancy; E89.0 Postprocedural hypothyroidism; O42.92 Full-term premature rupture of membranes, unspecified as to length of time between rupture and onset of labor; O99.214 Obesity complicating childbirth; E66.9 Obesity, unspecified; O70.0 First degree perineal laceration during delivery; Z90.49 Acquired absence of other specified parts of digestive tract; Z91.018 Allergy to other foods; Z91.010 Allergy to peanuts; Z79.899 Other long term (current) drug therapy
CPT/HCPCS: 36415; 59025; 59409; 84112; 85014; 85018; 85027; 86850; 86900; 86901; A9270-GY; J0595; J2590; J7120

== ENCOUNTER 2021-05-12 02:24 | Emergency (ER) | payer BC ==
--- NOTE | 2021-05-12 02:32 | EDM.PDOC ---
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 She had a huge gush of blood this evening and afterwards then it slowed down and almost stopped. She got dizzy sweaty orthostatic. She has an intrauterine documented by ultrasound 1 week ago. At that time they documented the intrauterine and the demise of the twin. The patient is O+ by prior lab work here. Review of systems: As per history of present illness and below otherwise all systems reviewed and negative. Past medical history: As per history of present illness and as reviewed below otherwise noncontributory. Surgical history: As per history of present illness and as reviewed below otherwise noncontributory. Social history: No reported history of drug or alcohol abuse. Family history: As per history of present illness and as reviewed below otherwise noncontributory. Physical exam: Constitutional - well developed, well-nourished and in no acute distress HEENT - normocephalic, no evidence of trauma - external nose and mouth normal - no mass in neck and no JVD - mucosae moist EYES - full EOM, PERRL, no icterus - no evidence of inflammation, injection, or drainage Respiratory - no respiratory distress, equal bilateral expansion, lungs clear to auscultation and no abnormal lung sounds GI - abdomen soft without distension or organomegaly - no guard or rebound Musculoskeletal no gross deformity of long bones or joints - no tenderness, swelling or edema Neurologic - Alert and oriented times four - CN II-XII grossly intact - motor sensory and coordination symmetrically normal Psychiatric - appropriate mood and affect with normal thought content Hematologic - No petechiae or purpura - mucosa appropriate color and sclera not pale - normal nail bed color and refill Integument - no rash or evidence of trauma - normal turgor Diagnostics: [] Therapeutics: [] Impression: [] Plan: [] Definitive disposition and diagnosis as appropriate pending reevaluation and review of above. Abdomen Pain Score (Numeric/FACES): 3 - Related Data Allergies Allergy/AdvReac Type Severity Reaction Status Date / Time chocolate flavor Allergy Swollen Verified 09/20/18 10:17 Tongue gluten Allergy Abdominal Verified 07/20/18 14:13 Pain peanuts Allergy Swollen Uncoded 09/20/18 10:17 Tongue walnuts Allergy Swollen Uncoded 09/20/18 10:17 Tongue Home Meds: Home Meds Levothyroxine Sodium [Synthroid] 225 mcg PO QAM 10/06/17 [History] Pnv No.95/Ferrous Fum/Folic AC [ Vitamin Tablet] 1 tab PO DAILY 07/20/18 [History] Calcium Carbonate [Calcium] 500 mg PO BID 09/20/18 [History] Docusate Sodium [Colace] 50 mg PO BID 09/20/18 [History] Past Medical History Other HEENT History: wears glasses/contacts Cardiovascular History: Reports: None Respiratory History: Reports: None Gastrointestinal History: Reports: Cholelithiasis Genitourinary History: Reports: None 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: Reports: , Other (See Below) Other 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: 2000 LEEP for abnormal PAP Musculoskeletal History: Reports: None Neurological History: Reports: Concussion, Other (See Below) Other Neuro History: hx of motion sickness Psychiatric History: Reports: None Endocrine/Metabolic History: Reports: Hypothyroidism, Obesity/BMI 30+ Hematologic History: Reports: None Immunologic History: Reports: None Oncologic (Cancer) History: Reports: None Dermatologic History: Reports: None - Infectious Disease History Infectious Disease History: Reports: None - Past Surgical History HEENT Surgical History: Reports: Adenoidectomy, Tonsillectomy GI Surgical History: Reports: Appendectomy, Cholecystectomy, EGD Female Surgical History: Reports: Breast Biopsy Endocrine Surgical History: Reports: Thyroidectomy Neurological Surgical History: Reports: None Musculoskeletal Surgical History: Reports: Shoulder Surgery Other Musculoskeletal Surgeries/Procedures:: right shoulder- repair of labrim tear Oncologic Surgical History: Reports: Lumpectomy, Other (See Below) Other Oncologic Surgeries/Procedures: Lumpectomy from right breast in 2016. Social & Family History - Family History Cardiac: Reports: High Cholesterol OBGYN: Reports: Musculoskeletal: Reports: Back pain, Chronic Endocrine/Metabolic: Reports: Diabetes, type II, Hypothyroidism, Obesity/MBI 30+ Oncologic: Reports: Breast, Other (See Below) Other Oncologic Family History: maternal and paternal grandmothers ED ROS GENERAL - Review of Systems Review Of Systems: Comprehensive ROS is negative, except as noted in HPI. ED EXAM, GENERAL - Physical Exam Exam: See Below Free Text/Narrative:: My physical exam is in the HPI Course - Vital Signs Last Recorded V/S: Last Vital Signs Temp 36.9 C 05/12/21 02:30 Pulse 76 05/12/21 02:30 Resp 16 05/12/21 02:30 BP 101/63 05/12/21 02:30 Pulse Ox 98 05/12/21 02:30 Orthostatic Blood Pressure [ 94/60 Standing] Orthostatic Blood Pressure [ 99/58 Sitting] Orthostatic Blood Pressure [ 105/56 Supine] - Orders/Labs/Meds Orders: Active Orders 24 hr Category Date Time Status Orthostatic Vital Signs [RC] ASDIRECTED Care 05/12/21 02:44 Active HCG QUANTITATIVE [CHEM] Stat Lab 05/12/21 02:56 Received Labs: Laboratory Tests 05/12/21 Range/Units 02:56 WBC 7.75 (4.0-11.0) K/uL RBC 3.88 L (4.30-5.90) M/uL Hgb 12.5 (12.0-16.0) g/dL Hct 36.0 (36.0-46.0) % MCV 92.8 (80.0-98.0) fL MCH 32.2 H (27.0-32.0) pg MCHC 34.7 (31.0-37.0) g/dL RDW Std Deviation 45.4 (28.0-62.0) fl RDW Coeff of Sunita 13 (11.0-15.0) % Plt Count 273 (150-400) K/uL MPV 9.50 (7.40-12.00) fL Neut % (Auto) 63.1 (48.0-80.0) % Lymph % (Auto) 29.5 (16.0-40.0) % [place] % (Auto) 6.1 (0.0-15.0) % Eos % (Auto) 0.9 (0.0-7.0) % Baso % (Auto) 0.4 (0.0-1.5) % Neut # (Auto) 4.9 (1.4-5.7) K/uL Lymph # (Auto) 2.3 (0.6-2.4) K/uL [place] # (Auto) 0.5 (0.0-0.8) K/uL Eos # (Auto) 0.1 (0.0-0.7) K/uL Baso # (Auto) 0.0 (0.0-0.1) K/uL Nucleated RBC % 0.0 /100WBC Nucleated RBCs # 0 K/uL Departure - Departure Time of Disposition: 03:50 Disposition: Home, Self-Care 01 Condition: Good Clinical Impression: Threatened - Discharge Information Instructions: Threatened Miscarriage, [id number] Referrals: Cammy Gallardo NP [Primary Care Provider] - Forms: ED Department Discharge Additional Instructions: [facility] [address] [place] [id number] [facility] [address] [place] [id number] The following information is given to patients seen in the emergency department who are being discharged to home. This information is to outline your options for follow-up care. We provide all patients seen in our emergency department with a follow-up referral. The need for follow-up, as well as the timing and circumstances, are variable depending upon the specifics of your emergency department visit. If you don't have a primary care physician on staff, we will provide you with a referral. We always advise you to contact your personal physician following an emergency department visit to inform them of the circumstance of the visit and for follow-up with them and/or the need for any referrals to a consulting specialist. The emergency department will also refer you to a specialist when appropriate. This referral assures that you have the opportunity for follow-up care with a specialist. All of these measure are taken in an effort to provide you with optimal care, which includes your follow-up. Under all circumstances we always encourage you to contact your private physician who remains a resource for coordinating your care. When calling for follow-up care, please make the office aware that this follow-up is from your recent emergency room visit. If for any reason you are refused follow-up, please contact the [facility] Emergency Department at and asked to speak to the emergency department charge nurse. Sepsis Event Note (ED) - Focused Exam Vital Signs: Vital Signs Temp Pulse Resp BP Pulse Ox 05/12/21 02:30 36.9 C 76 16 101/63 98 - My Orders Last 24 Hours: My Active Orders 05/12/21 02:44 Orthostatic Vital Signs [RC] ASDIRECTED 05/12/21 02:56 HCG QUANTITATIVE [CHEM] Stat - Assessment/Plan Last 24 Hours: My Active Orders 05/12/21 02:44 Orthostatic Vital Signs [RC] ASDIRECTED 05/12/21 02:56 HCG QUANTITATIVE [CHEM] Stat
== END 2021-05-12 04:10 | disposition home or self-care (01) ==
LOC: MW.ED 02:24
DX: O20.0 Threatened abortion (principal); Z91.010 Allergy to peanuts; Z91.018 Allergy to other foods; Z3A.10 10 weeks gestation of pregnancy
CPT/HCPCS: 36415; 84702; 85025; 99284

== ENCOUNTER 2021-11-27 07:34 | Inpatient (IN) | payer BC ==
[2021-11-27] MEDS: Lactated Ringers 1,000 ML IV SCH ×2 (08:05→10:21)
[2021-11-27] MEDS ORDERED: Ropivacaine 100 ML ONE (08:11)
[2021-11-27] MEDS ORDERED: ePHEDrine 50 MG/ML SDV IVPUSH PRN ×2 (08:18)
[2021-11-27] MEDS ORDERED: Ropivacaine 200 MG in Premix Bag 1 BAG EPIDUR SCH (08:30)
[2021-11-27] MEDS ORDERED: Carboprost Tromethamine 250 MCG/1 ML Amp IM PRN ×2 (09:21→13:15)
[2021-11-27] MEDS ORDERED: Ondansetron 4 MG/2 ML SDV IVPUSH PRN (09:21)
[2021-11-27] MEDS ORDERED: Misoprostol 200 MCG Tab PO PRN (09:21)
[2021-11-27] MEDS ORDERED: Sodium Chloride 0.9% 2.5 ML Syringe FLUSH PRN (09:21)
[2021-11-27] MEDS ORDERED: Water For Irrigation,Sterile 1,000 ML Container IRR PRN (09:21)
[2021-11-27] MEDS ORDERED: Sodium Chloride 0.9% 20 ML SDV IV PRN (09:21)
[2021-11-27] MEDS ORDERED: Sodium Chloride 0.9% 10 ML Syringe FLUSH PRN (09:21)
[2021-11-27] MEDS ORDERED: Terbutaline 1 MG/ML SDV SUBCUT PRN (09:21)
[2021-11-27] MEDS ORDERED: Methylergonovine 0.2 MG/1 ML Amp IM PRN (09:21)
[2021-11-27] MEDS ORDERED: Tranexamic Acid 1,000 MG in Sodium Chloride 0.9% 100 ML IV PRN (09:21)
[2021-11-27] MEDS ORDERED: Lidocaine 1% 50 ML MDV INJECT PRN (09:21)
[2021-11-27] MEDS ORDERED: Oxytocin/0.9 % Sodium Chloride 30 UNIT/500 ML BAG IV SCH ×2 (09:30)
[2021-11-27] MEDS ORDERED: Lanolin 100% Cream 7 GM Tube TOP PRN (13:15)
[2021-11-27] MEDS ORDERED: Ibuprofen 400 MG Tab PO PRN (13:15)
[2021-11-27] MEDS ORDERED: Docusate Sodium 100 MG Cap PO PRN (13:15)
[2021-11-27] MEDS ORDERED: Bisacodyl 10 MG Supp RECTAL PRN (13:15)
[2021-11-27] MEDS ORDERED: Benzocaine/Menthol 20%-0.5% Spray 78 GM Cannister TOP PRN (13:15)
[2021-11-27] MEDS ORDERED: Acetaminophen 500 MG Tab PO PRN ×2 (13:15)
[2021-11-27] MEDS ORDERED: Ibuprofen 800 MG Tab PO PRN (13:15)
[2021-11-27] MEDS ORDERED: Misoprostol 200 MCG Tab RECTAL PRN (13:15)
[2021-11-27] MEDS ORDERED: Witch Hazel Medicated Pads 40/Jar TOP PRN (13:15)
[2021-11-27] MEDS ORDERED: oxyCODONE 5 MG Tab PO PRN (13:15)
[2021-11-27] MEDS ORDERED: guaiFENesin 100 MG/5 ML Soln 5 ML UD Cup PO PRN (16:17)
[2021-11-27] MEDS ORDERED: Benzonatate 100 MG Cap PO PRN (16:19)
[2021-11-27] MEDS: ALBUTEROL INH SCH (21:04)
[2021-11-27] MEDS: IPRATROPIUM INH SCH (21:04)
[2021-11-27] MEDS: AMOXICILLIN PO SCH (21:10)
[2021-11-27] MEDS: CLAVULANATE K PO SCH (21:10)
[2021-11-28] MEDS: IPRATROPIUM INH SCH ×2 (07:55→08:03)
[2021-11-28] MEDS: ALBUTEROL INH SCH ×2 (07:55→08:03)
[2021-11-28] MEDS: CLAVULANATE K PO SCH (08:03)
[2021-11-28] MEDS: AMOXICILLIN PO SCH (08:03)
[2021-11-28] MEDS ORDERED: ALBUTEROL INH SCH (12:00)
[2021-11-28] MEDS ORDERED: IPRATROPIUM INH SCH (12:00)
[2021-11-28] MEDS ORDERED: CLAVULANATE K PO SCH (21:00)
[2021-11-28] MEDS ORDERED: AMOXICILLIN PO SCH (21:00)
== END 2021-11-28 16:40 | disposition home or self-care (01) | DRG 560 ==
LOC: MW.OBCHECK 07:34 → MW.OB 07:36 → MW.OBCHECK 12:59 → OBSVTOIN 13:16 → MW.OB 17:16
PROVIDERS: ADMIT Obstetrics & Gynecology; ATTEND Obstetrics & Gynecology
PROC: 10E0XZZ Delivery of Products of Conception, External Approach (ICD-10-PCS; principal; 2021-11-27)
PROC: 0HQ9XZZ Repair Perineum Skin, External Approach (ICD-10-PCS; 2021-11-27)
PROC: 3E0R3BZ Introduction of Anesthetic Agent into Spinal Canal, Percutaneous Approach (ICD-10-PCS; 2021-11-27)
PROC: 00HU33Z Insertion of Infusion Device into Spinal Canal, Percutaneous Approach (ICD-10-PCS; 2021-11-27)
DX: O13.4 Gestational [pregnancy-induced] hypertension without significant proteinuria, complicating childbirth (principal); Z3A.38 38 weeks gestation of pregnancy; Z37.0 Single live birth; O99.284 Endocrine, nutritional and metabolic diseases complicating childbirth; E03.9 Hypothyroidism, unspecified; O70.0 First degree perineal laceration during delivery
CPT/HCPCS: 01967; 36415; 59025; 59409; 85014; 85018; 85027; 86592; 86850; 86900; 86901; A9270-GY; J2370; J2590; J2795; J7120

== ENCOUNTER 2022-10-25 11:20 | Day surgery (SDC) | payer BC ==
[~2022-10-25 11:20] MED LIST changes: +Propofol 200 MG/20 ML SDV ONE; +Sodium Chloride 0.9% 10 ML Syringe FLUSH PRN; +Sodium Chloride 0.9% 2.5 ML Syringe FLUSH PRN; +Sodium Chloride 0.9% 20 ML SDV IV PRN; -ceFAZolin 2 GM in Premix Bag 1 BAG IV ONE
[2022-10-25] MEDS ORDERED: Propofol 200 MG/20 ML SDV ONE ×2 (12:34→12:40)
[2022-10-25] MEDS ORDERED: fentaNYL 100 MCG/2 ML SDV ONE (12:40)
== END 2022-10-25 13:45 | disposition home or self-care (01) ==
LOC: MW.SDS 11:20
PROVIDERS: ATTEND Surgery
DX: K52.9 Noninfective gastroenteritis and colitis, unspecified (principal); K21.9 Gastro-esophageal reflux disease without esophagitis; R19.4 Change in bowel habit; K64.8 Other hemorrhoids; J30.9 Allergic rhinitis, unspecified; E03.9 Hypothyroidism, unspecified; Z91.010 Allergy to peanuts; Z79.899 Other long term (current) drug therapy; Z98.890 Other specified postprocedural states; Z86.16 Personal history of COVID-19; Z79.890 Hormone replacement therapy
CPT/HCPCS: 43239; 45380; 81025; J2704; J3010; J7120